=== PATIENT | female | born 1985 | race Caucasian/White ===

== ENCOUNTER 2017-04-28 12:03 | Emergency (ER) | payer MEDICAID ==
[2017-04-28] MEDS ORDERED: LEVETIRACETAM 1500 MG/NACL-ISO 1,500 MG/100 ML RTUPB IV ONE (12:41)
[2017-04-28 12:45] LABS: ABSOLUTE LYMPHOCYTES (AUTO) 2.4 10^3/uL (0.5-4.7); ABSOLUTE MONOCYTES (AUTO) 0.6 10^3/uL (0.1-1.4); ABSOLUTE NEUT (AUTO) 5.4 10^3/uL (1.7-8.2); BASOPHILS % (AUTO) 0.4 % (0-2); EOSINOPHILS % (AUTO) 0.5 % (0-6); HEMATOCRIT 41.3 % (36.0-47.0); HEMOGLOBIN 13.7 g/dL (12.0-15.5); LYMPHOCYTES % (AUTO) 28.4 % (13-45); MEAN CORPUSCULAR HEMOGLOBIN 29.9 pg (27.0-33.4); MEAN CORPUSCULAR HGB CONC 33.1 g/dL (32.0-36.0); MEAN CORPUSCULAR VOLUME 90 fl (80-97); MONOCYTES % (AUTO) 6.6 % (3-13); PLATELET COUNT 339 10^3/uL (150-450); RED BLOOD COUNT 4.57 10^6/uL (3.72-5.28); RED CELL DISTRIBUTION WIDTH 14.2 % (11.5-14.0); SEGMENTED NEUTROPHILS % (AUTO) 64.1 % (42-78); TOTAL CELLS COUNTED % (AUTO) 100 %; WHITE BLOOD COUNT 8.5 10^3/uL (4.0-10.5)
[2017-04-28 12:53] LABS: ALANINE AMINOTRANSFERASE 16 U/L (9-52); ALBUMIN 3.6 g/dL (3.5-5.0); ALKALINE PHOSPHATASE 55 U/L (38-126); ANION GAP 18 (5-19); ASPARTATE AMINO TRANSFERASE 16 U/L (14-36); BILIRUBIN,DIRECT 0.2 mg/dL (0.0-0.4); BILIRUBIN,TOTAL 0.2 mg/dL (0.2-1.3); BLOOD UREA NITROGEN 7 mg/dL (7-20); CARBON DIOXIDE 20 mmol/L (22-30); CHLORIDE 105 mmol/L (98-107); CREATINE KINASE 47 U/L (30-135); GLUCOSE 75 mg/dL (75-110); POTASSIUM 3.4 mmol/L (3.6-5.0); SODIUM 143.2 mmol/L (137-145); TOTAL PROTEIN 6.8 g/dL (6.3-8.2)
[2017-04-28] MEDS ORDERED: KETOROLAC TROMETHAMINE INJ/PF 30 MG/1 ML SDV IV ONE (13:24)
[2017-04-28 13:36] VITALS: BP 112/79
[2017-04-28 14:25] LABS: APPEARANCE,URINE CLEAR; BILIRUBIN,URINE NEGATIVE (NEGATIVE); COLOR,URINE STRAW; GLUCOSE, URINE NEGATIVE (NEGATIVE); KETONES,URINE NEGATIVE (NEGATIVE); LEUKOCYTE ESTERASE,URINE NEGATIVE (NEGATIVE); NITRITE,URINE NEGATIVE (NEGATIVE); PROTEIN,URINE NEGATIVE (NEGATIVE); UROBILINOGEN,URINE NEGATIVE mg/dL (<2.0)
[2017-04-28] MEDS ORDERED: LEVETIRACETAM 500 MG TABLET PO ONE (14:58)
--- NOTE | 2017-04-28 15:02 | ER Document Report ---
ED General - General Chief Complaint: Probable Seizure Stated Complaint: POSSIBLE SEIZURE Time Seen by Provider: 04/28/17 12:15 Mode of Arrival: Ambulatory Information source: Patient TRAVEL OUTSIDE OF THE [place] IN LAST 30 DAYS: No - HPI Notes: 31-year-old female with a known history of seizures presents today via EMS with having a seizure approximately 2 hours ago. Seizure was witnessed by mother. Patient came in by herself with EMS. Patient reports she starts to get twitching as an aura prior to her seizure. She was seeing a neurologist when she was out of state, but recently moved back to this area because of a breakup approximately 6 months ago. Patient states she has not been taking her on the dose since that time she is unable to get her Medicaid and unable to get her medication. Patient states that after she is seizure and she usually gets a headache. Denies any trauma from her mother told her while she is actively seizing. Denies . Denies fevers, chills, chest pain,palpitations, shortness of breath, dyspnea, nausea, vomiting, diarrhea, abdominal pain, hematuria,blurred vision, double vision, loss of vision, speech changes, LH, dizziness, syncope, headaches, wheezing, ST, URI, neck pain, weakness, bowel or bladder dysfunction, saddle anesthesia, numbness or tingling in bilateral upper or lower extremities equally, muscle paralysis, weakness in bilateral upper or lower extremities equally or rash. Denies IV drug use. - Related Data Allergies/Adverse Reactions: No Known Allergies Allergy (Verified 07/01/14 18:40) Past Medical History - General Information source: Patient - Social History Smoking Status: Former Smoker Chew tobacco use (# tins/day): No Frequency of alcohol use: None Drug Abuse: None Family History: Other Patient has suicidal ideation: No Patient has homicidal ideation: No Neurological Medical History: Reports: Hx Migraine, Hx Seizures Renal/ Medical History: Denies: Hx Peritoneal Dialysis Past Surgical History: Reports: Hx Section, Hx Oral Surgery - Immunizations Hx Diphtheria, Pertussis, Tetanus Vaccination: Yes - 05/04 Review of Systems - Review of Systems Notes: REVIEW OF SYSTEMS: CONSTITUTIONAL : Denies fever, chills, or sweats. Denies recent illness. EENT: Denies eye, ear, throat, or mouth pain or symptoms. Denies nasal or sinus congestion or discharge. Denies throat, tongue, or mouth swelling or difficulty swallowing. CARDIOVASCULAR: Denies chest pain. Denies palpitations or racing or irregular heart beat. Denies ankle edema. RESPIRATORY: Denies cough, cold, or chest congestion. Denies shortness of breath, difficulty breathing, or wheezing. GASTROINTESTINAL: Denies abdominal pain or distention. Denies nausea, vomiting , or diarrhea. Denies blood in vomitus, stools, or per rectum. Denies black, tarry stools. Denies constipation. GENITOURINARY: Denies difficulty urinating, painful urination, burning, frequency, blood in urine, or discharge. FEMALE GENITOURINARY: Denies vaginal bleeding, heavy or abnormal periods, irregular periods. Denies vaginal discharge or odor. MUSCULOSKELETAL: Denies back or neck pain or stiffness. Denies joint pain or swelling. SKIN: Denies rash, lesions or sores. HEMATOLOGIC : Denies easy bruising or bleeding. LYMPHATIC: Denies swollen, enlarged glands. NEUROLOGICAL: +seizures. Denies confusion or altered mental status. Denies passing out or loss of consciousness. Denies dizziness or lightheadedness. Denies headache. Denies weakness or paralysis or loss of use of either side. Denies problems with gait or speech. Denies sensory loss, numbness, or tingling. Denies seizures. PSYCHIATRIC: Denies anxiety or stress. Denies depression, suicidal ideation, or homicidal ideation. ALL OTHER SYSTEMS REVIEWED AND NEGATIVE. PHYSICAL EXAMINATION: GENERAL: Well-appearing, well-nourished and in no acute distress. HEAD: Atraumatic, normocephalic. EYES: Pupils equal round and reactive to light, extraocular movements intact, conjunctiva are normal. ENT: Nares patent, oropharynx clear without exudates. Moist mucous membranes. NECK: Normal range of motion, supple without lymphadenopathy LUNGS: Breath sounds clear to auscultation bilaterally and equal. No wheezes rales or rhonchi. HEART: Regular rate and rhythm without murmurs ABDOMEN: Soft, nontender, nondistended abdomen. No guarding, no rebound. No masses appreciated. Female : deferred Musculoskeletal: Normal range of motion, no pitting or edema. No cyanosis. NEUROLOGICAL: Cranial nerves grossly intact. Normal speech, normal gait. Normal sensory, motor exams. PERRLA, EOMI. Full motor and sensory function throughout. Film Color Tester + 2 equal bilaterally in BUE. Tongue midline. No pronator drift. No ataxia. Neck with APROM. Raises eyebrows. Speaks in full sentences. No weakness on one side. Romberg gait steady able to walk straight line. Able to recall 5 objects. PSYCH: Normal mood, normal affect. SKIN: Warm, Dry, normal turgor, no rashes or lesions noted. Dictation was performed using [employer] voice recognition software Physical Exam - Vital signs Vitals: Temp 99.4 F 04/28/17 12:03 Course - Re-evaluation Re-evalutation: 04/28/17 15:12 Healthy 29-year-old female with a known history of seizures since today for evaluation.Closure. Patient is denying any muscular complaints. Reevaluation patient, patient states she feels better. Pain without having any seizures. 3 depression has been maintained. 1500 mg of Keppra given intravenously. EKG normal sinus rhythm without any abnormalities, no STEMI, heart rate 82bpm, CBC unremarkable for any leukocytosis or anemia. CMP unremarkable, slightly low potassium, advised patient to increase eating bananas daily. Urinalysis negative for any UTI, patient is not . advised patient to follow-up with neurologist outpatient do not drive, drink or operate machinery while taking Lamictal. Patient prescribed Lamictal 50 mg daily for 2 weeks and advised her to see neurologist so they can increase her dose as well as another reevaluation of her tonic-clonic seizures with possible EEG or imaging. Patient and mother at bedside both verbalized understanding of plan of care and agree with plan of care. Patient was discharged home. 04/28/17 15:17 - Vital Signs Vital signs: Temp Pulse Resp BP Pulse Ox 99.4 F 19 112/79 98 04/28/17 12:08 04/28/17 13:01 04/28/17 13:00 04/28/17 13:01 - Laboratory Result Diagrams: 04/28/17 11:36 04/28/17 11:36 Laboratory results interpreted by me: 04/28/17 04/28/17 11:36 11:36 RDW 14.2 H Potassium 3.4 L Carbon Dioxide 20 L Discharge - Discharge Clinical Impression: Seizure Condition: Good Additional Instructions: Hypokalemia You have an abnormally decreased level of serum potassium. Hypokalemia may cause weakness, fatigue, or heart rhythm abnormalities. Sometimes there are no symptoms at all. Usually, low serum potassium is due to taking diuretics ( water pills). It can also be due to excessive vomiting or diarrhea. If no obvious cause is evident, further evaluation will be necessary. Treatment is usually oral potassium supplements. Take these exactly as prescribed. You may also want to select foods which are naturally high in potassium -- fruits (such as bananas, cantaloupe, grapes, oranges, prunes, tomatoes), fresh vegetables (potatoes, spinach, beans, peas), orange or tomato juice, tomato pasta sauce, milk, fish (halibut, tuna, salmon, satnam) A follow-up blood test is usually performed to assure that the potassium is returning to normal. Call the physician if you suffer severe weakness, muscle twitching or cramping, palpitations (pounding or irregular heartbeat), or any other new or alarming symptoms Seizure, Known Epileptic You have had a seizure. Seizures may "break through" in an epileptic due to stress of infection or injury, a change in blood chemistry, or drug and alcohol use. Another common cause is failure to take medication as prescribed. Your doctor has evaluated your situation for the likely cause of this seizure. It is important that you follow his advice concerning any medication changes and follow-up care. Further testing of anti-seizure medication levels in your blood may be necessary. If you have a tank truck driver's license, it's important that you DO NOT DRIVE until given permission by your physician. This seizure must be reported to the tank truck driver 's license bureau. Call the doctor or return if seizures recur, or if new or unusual symptoms arise -- such as severe headache, confusion, excessive sleepiness, local weakness or numbness, neck stiffness, or fever. Follow-up with neurologist within 1 week. Take prescription of Lamictal as directed, your given a two-week supply. Do not drive, operate machinery or drink while taking this medication. Do not drive at all until you are seen by a neurologist. Follow-up with your PCP tomorrow. Return immediately for any new or worsening symptoms. Follow up with primary care provider, call tomorrow to make followup appointment. Prescriptions: Lamotrigine [Lamictal] 50 mg PO DAILY #28 tablet Referrals: RANDY MORALES MD [EMERITUS] - Follow up in 1 week LESLIE NARAYAN MD [ACTIVE STAFF] - Follow up tomorrow
--- NOTE | 2017-04-28 21:57 | EKG REPORT ---
SEVERITY:- NORMAL ECG - SINUS RHYTHM : Confirmed by: Etienne Layton 28-Apr-2017 21:57:00
== END 2017-04-28 15:36 | disposition home or self-care (01) ==
LOC: ER 12:03
DX: R56.9 Unspecified convulsions (principal); Z87.891 Personal history of nicotine dependence
CPT/HCPCS: 93005; 99284; 96375; 96365; 36415; 87086; 82550; 84702; 83735; 85025; 87088; 80053; 81001; 84484; 87186; 93010; J1885; J1953

== ENCOUNTER 2018-02-01 23:22 | Emergency (ER) | payer MEDICAID ==
[2018-02-02] MEDS ORDERED: LORAZEPAM 1 MG TABLET PO ONE (01:32)
[2018-02-02] MEDS ORDERED: DEXAMETHASONE SOD PHOS INJ 10 MG/1 ML VIAL IM ONE (02:03)
--- NOTE | 2018-02-02 02:19 | RADIOLOGY REPORT (SQ) ---
EXAM DESCRIPTION: X-ray two view chest. CLINICAL HISTORY: 32 years Female, shortness of breath COMPARISON: None. TECHNIQUE: PA and Lateral views of the chest performed on 02/02/2018 at 2:02 AM FINDINGS: The lungs are well expanded and are clear. The costophrenic sulci are clear. There is no evidence of a pneumothorax. The cardiac silhouette is normal in size. The mediastinal contours are normal. No acute osseous abnormalities are identified. No focal soft tissue abnormalities are identified. IMPRESSION: No evidence of acute intrathoracic disease.
[2018-02-02] MEDS ORDERED: HYDROXYZINE PAMOATE 25 MG CAPSULE (4 CAP/ER DISP) PO PRN (02:28)
--- NOTE | 2018-02-02 02:31 | ER Document Report ---
HPI - HPI Patient complains to provider of: Sore throat, cough, panic attack Time Seen by Provider: 02/02/18 01:32 Pain Level: 5 Context: Patient is a 32-year-old female that comes to the emergency department for chief complaint of 6 symptoms that started earlier today, she states she is starting a very sore throat, feels swelling on the front of her neck, has painful sensation when swallowing, has mild congestion and cough. She states when she coughs it feels like she simply cannot breathe and she becomes very anxious. She states she believes she had panic attack earlier. She denies SI or HI. She denies smoking, asthma, she denies any daily medications. LMP within the past month reportedly. - REPRODUCTIVE Reproductive: DENIES: : Past Medical History - General Information source: Patient - Social History Smoking Status: Never Smoker Drug Abuse: None Lives with: Family Family History: Other Neurological Medical History: Reports: Hx Migraine, Hx Seizures Renal/ Medical History: Denies: Hx Peritoneal Dialysis Past Surgical History: Reports: Hx Section, Hx Oral Surgery - Immunizations Hx Diphtheria, Pertussis, Tetanus Vaccination: Yes - 05/04 Vertical Provider Document - CONSTITUTIONAL General Appearance: Mild Distress - Patient appears very anxious and is mildly hyperventilating, Thin - INFECTION CONTROL TRAVEL OUTSIDE OF THE [place] IN LAST 30 DAYS: No - HEENT HEENT: Atraumatic, Normocephalic. negative: Normal ENT Exam - Exudative pharyngitis, no peritonsillar abscess, normal uvula, clear airway and unremarkable oropharyngeal exam otherwise - NECK Neck: negative: Normal Inspection - Mild bilateral anterior cervical adenopathy , no evidence of Pro's angina - RESPIRATORY Respiratory: Breath Sounds Normal, Other - Clear lungs but tachypnea is present - CARDIOVASCULAR Cardiovascular: Regular Rate, Regular Rhythm - GI/ABDOMEN Gastrointestinal: Abdomen Soft, Abdomen Non-Tender - BACK Back: Normal Inspection - MUSCULOSKELETAL/EXTREMETIES Musculoskeletal/Extremeties: MAEW, FROM, Non-Tender - NEURO Level of Consciousness: Awake, Alert, Appropriate - DERM Integumentary: Warm, Dry, No Rash Course - Re-evaluation Re-evalutation: When I first evaluated patient (I was asked by the nurse to evaluate the patient ) she was having a panic attack with tachypnea, gasping, dilated pupils, tachycardic, anxious. She was able to be talked down from this and she was allowed to hyperventilate into a bag briefly, this worked well, she recovered. She was given Ativan afterwards. She did not have repeat of symptoms. Patient states she felt very anxious and like she suddenly could not breathe but she denies dizziness, chest pain, or any other symptoms. Symptoms completely resolved. Patient has mild congestion, she does have exudative pharyngitis and anterior cervical adenopathy but her uvula and airway are patent, her lungs are clear, her examination is unremarkable otherwise. Vital signs are unremarkable. Strep negative, chest x-ray clear. Patient reevaluated again, states she feels much improved. She was given dexamethasone for her symptoms. She request something for anxiety, provided with Vistaril to take as needed for panic attacks. Discussed follow-up and return precautions. Patient states satisfaction and agreement with plan. - Vital Signs Vital signs: Temp Pulse Resp BP Pulse Ox 98.8 F 83 19 115/74 100 02/01/18 23:25 02/01/18 23:25 02/01/18 23:25 02/01/18 23:25 02/01/18 23:25 Discharge - Discharge Clinical Impression: Cough, Panic attack Upper respiratory infection Qualifiers: URI type: unspecified URI Qualified Code(s): J06.9 - Acute upper respiratory infection, unspecified Condition: Stable Disposition: HOME, SELF-CARE Additional Instructions: Your strep is negative. Your chest x-ray is clear. Your evaluation shows upper respiratory infection with swollen lymph nodes and inflammation of the throat. You have been treated with dexamethasone, take [id number] medications as needed for upper respiratory infection symptoms. You can take the Vistaril provided if needed for anxiety as well. Follow-up with primary care. Return if you worsen including difficulty breathing, spiking fever, difficulty swallowing, or any other concerning or worsening symptoms. Prescriptions: Hydroxyzine Pamoate [Vistaril 25 mg Capsule] 1 - 2 cap PO Q6 PRN #30 capsule PRN Reason:
[2018-02-02 02:47] VITALS: BP 111/72
== END 2018-02-02 02:49 | disposition home or self-care (01) ==
LOC: ER 23:22
DX: J06.9 Acute upper respiratory infection, unspecified (principal); F41.0 Panic disorder [episodic paroxysmal anxiety]; R05 Cough; J02.9 Acute pharyngitis, unspecified; R22.1 Localized swelling, mass and lump, neck; F41.9 Anxiety disorder, unspecified
CPT/HCPCS: 99284; 96372; 87070; 87880; 71046; J3490; J1100